=== PATIENT | female | born 1995 | race Caucasian/White ===

== ENCOUNTER 2017-06-24 22:09 | Emergency (ER) | payer OTHER ==
--- NOTE | 2017-06-24 23:34 | ED Physician Documentation ---
PD HPI ABD PAIN - Stated complaint Stated Complaint: ALLERGIC REACTION - Chief complaint Chief Complaint: Abd Pain - History obtained from History obtained from: Patient - History of Present Illness Timing - onset: Enter time (21:00) Timing - details: Abrupt onset Quality: Pain Location: Epigastric Radiation: Lower back, Right flank Improved by: Other (no ameliorating factors) Worsened by: Other (no exacerbating factors) Associated symptoms: Nausea, Vomiting. No: Fever, Diarrhea, Constipation Recently seen: Not recently seen - Additional information Additional information: c/o sudden onset upper abdominal pain radiating around right flank to back, associated with nausea and vomiting. 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 She suspects the symptoms were due to ingestion of a pistachio, as she has had similar symptoms in the past associated with ingestion of nuts. Review of Systems Constitutional: reports: Sweats. denies: Fever, Chills Cardiac: reports: Reviewed and negative Respiratory: reports: Reviewed and negative GI: reports: Abdominal Pain, Nausea, Vomiting. denies: Constipation, Diarrhea : denies: Dysuria, Frequency Musculoskeletal: reports: Back pain PD PAST MEDICAL HISTORY - Past Medical History Past Medical History: No - Past Surgical History Past Surgical History: Yes General: Colonoscopy - Present Medications Home Medications: Ambulatory Orders Medication Instructions Recorded Confirmed Ca/D3/Mag Ox/Zinc/Metal Die Finisher/Eleazar/Bor 06/24/17 [Calcium 231-S0-Pilwmjnx Chw Tb] Fluticasone [Flonase] 06/24/17 Medroxyprogesterone Acetate 06/24/17 [Depo-Subq Provera 104] - Allergies Allergies/Adverse Reactions: Allergies Allergy/AdvReac Type Severity Reaction Status Date / Time cashew nut Allergy Anaphylaxis Verified 06/24/17 22:21 Penicillins Allergy Anaphylaxis Verified 06/24/17 22:21 peanuts Allergy Anaphylaxis Uncoded 06/24/17 22:21 - Social History Does the pt smoke?: No Smoking Status: Never smoker Does the pt drink ETOH?: Yes Does the pt have substance abuse?: No - Immunizations Immunizations are current?: Yes - POLST Patient has POLST: No PD ED PE NORMAL - Vitals Vital signs reviewed: Yes - General General: Alert and oriented X 3, No acute distress, Well developed/nourished - Cardiac Cardiac: RRR, No murmur - Respiratory Respiratory: No respiratory distress, Clear bilaterally - Abdomen Abdomen: Soft, Non distended, Other (mild epigastric and RUQ tenderness without rebound or guarding) - Back Back: No CVA TTP Results - Vitals Vitals: Vital Signs - 24 hr 06/24/17 06/24/17 06/25/17 22:17 23:29 01:35 Temperature 36.4 C L Heart Rate 86 71 70 Respiratory 18 16 16 Rate Blood Pressure 133/88 H 116/79 112/74 O2 Saturation 100 99 99 Oxygen O2 Source Room air - Labs Labs: Laboratory Tests 06/25/17 06/25/17 06/25/17 00:15 00:20 00:20 WBC 15.0 H RBC 5.11 Hgb 15.4 Hct 45.7 MCV 89.4 MCH 30.2 MCHC 33.8 RDW 12.9 Plt Count 204 MPV 8.6 Neut # 10.8 H Lymph # 2.5 [place] # 1.4 H Eos # 0.1 Baso # 0.1 Absolute Nucleated RBC 0.00 Nucleated RBC % 0.0 Sodium 138 Potassium 3.7 Chloride 105 Carbon Dioxide 24 Anion Gap 9.0 BUN 14 Creatinine 0.7 Estimated GFR (MDRD) 104 Glucose 104 H Calcium 9.6 Total Bilirubin 0.8 AST 23 ALT 18 Alkaline Phosphatase 45 Total Protein 8.0 Albumin 5.3 Globulin 2.7 Albumin/Globulin Ratio 2.0 Lipase 17 L Urine Color YELLOW Urine Clarity CLEAR Urine pH 7.0 Ur Specific [place] 1.010 Urine Protein NEGATIVE Urine Glucose (UA) NEGATIVE Urine Ketones TRACE Urine Occult Blood TRACE-INTA Urine Nitrite NEGATIVE Urine Bilirubin NEGATIVE Urine Urobilinogen 0.2 (NORMAL) Ur Leukocyte Esterase NEGATIVE Ur Microscopic Review NOT INDICATED Urine Culture Comments NOT INDICATED PD MEDICAL DECISION MAKING - ED course Complexity details: reviewed results, re-evaluated patient, considered differential, d/w patient ED course: Patient suspects symptoms tonight were due to ingestion of pistachio, although she has had pistachios before without such symptoms. She says she did have one previous similar episode after ingestion of nuts and she was T+R from another ED after being treated for suspected allergic reaction to nuts. However, she says the symptoms tonight did not start until nearly an hour after she ate the pistachios and after she started eating her dinner. Differential diagnosis included renal colic, biliary colic. Bedside US shows normal GB without evidence of calculus or sludge. She has trace hematuria but after blood tests and UA resulted, patient says she feels symptoms have resolved and thus further testing not performed. I d/w patient that CT would typically be diagnostic if symptoms are due to renal colic, but this can be done in outpatient setting or else return to ED if symptoms return. Departure - Departure Disposition: 01 Home, Self Care Clinical Impression: Abdominal pain Qualifiers: Abdominal location: upper abdomen, unspecified Qualified Code(s): R10.10 - Upper abdominal pain, unspecified Condition: Good Instructions: ED Abdominal Pain Unkn Cause, ED Flank Pain Uncertain Cause Follow-Up: JOHNATHON RAY DO [Primary Care Provider] - Discharge Date/Time: 06/25/17 01:38
[2017-06-25 00:30] LABS: BASOPHILS # (AUTO) 0.1 10^3/uL (0.0-0.1); BASOPHILS % (AUTO) 0.3 %; EOSINOPHILS # (AUTO) 0.1 10^3/uL (0.0-0.7); EOSINOPHILS % (AUTO) 0.9 %; HGB - HEMOGLOBIN 15.4 g/dL (12.0-16.0); LYMPHOCYTES # (AUTO) 2.5 10^3/uL (1.5-3.5); LYMPHOCYTES % (AUTO) 16.8 %; MEAN CORPUSCULAR HEMOGLOBIN 30.2 pg (27.0-31.0); MEAN CORPUSCULAR HGB CONC 33.8 g/dL (32.0-36.0); MEAN CORPUSCULAR VOLUME 89.4 fL (81.0-99.0); MEAN PLATELET VOLUME 8.6 fL (7.9-10.8); MONOCYTES # (AUTO) 1.4 10^3/uL (0.0-1.0); MONOCYTES % (AUTO) 9.7 %; NEUTROPHILS # (AUTO) 10.8 10^3/uL (1.5-6.6); NEUTROPHILS % (AUTO) 72.3 %; PLT - PLATELET COUNT 204 10^3/uL (130-450); RED BLOOD COUNT 5.11 10^6/uL (4.20-5.40); RED CELL DISTRIBUTION WIDTH 12.9 % (12.0-15.0)
[2017-06-25 00:39] LABS: BILIRUBIN,URINE NEGATIVE (NEGATIVE); GLUCOSE, URINE (UA) NEGATIVE (NEGATIVE); KETONES,URINE (UA) TRACE mg/dL (NEGATIVE); LEUKOCYTE ESTERASE, URINE NEGATIVE (NEGATIVE); NITRITE,URINE NEGATIVE (NEGATIVE); OCCULT BLOOD,URINE TRACE-INTA (NEGATIVE); PROTEIN,URINE NEGATIVE (NEGATIVE); UROBILINOGEN,URINE 0.2 (NORMAL) E.U./dL (NORMAL)
[2017-06-25 00:40] LABS: ALBUMIN 5.3 g/dL (3.2-5.5); BILIRUBIN,TOTAL 0.8 mg/dL (0.2-1.0); CALCIUM 9.6 mg/dL (8.5-10.3); CREATININE 0.7 mg/dL (0.4-1.0)
[2017-06-25 00:44] LABS: CLARITY,URINE CLEAR (CLEAR)
[2017-06-25 01:36] VITALS: BP 112/74
== END 2017-06-25 01:38 | disposition home or self-care (01) ==
LOC: ED 22:09
DX: R10.11 Right upper quadrant pain (principal); R10.13 Epigastric pain
CPT/HCPCS: 36415; 80053; 81001; 81003; 83690; 85025; 87086; 99283

== ENCOUNTER 2020-08-18 13:57 | Emergency (ER) | payer OTHER ==
[2020-08-18] MEDS ORDERED: BUFFERED LIDOCAINE 10 ML SYRINGE SUBQ STA (14:06)
--- NOTE | 2020-08-18 14:06 | ED Physician Documentation ---
PD HPI LOWER EXT INJURY - Stated complaint Stated Complaint: L FOOT INJURY - History obtained from History obtained from: Patient - Additional information Additional information: She impacted her toe into door while chasing her daughter at home this morning. She took ibuprofen and that is currently sufficient. No possibility of . Review of Systems Constitutional: reports: Reviewed and negative Eyes: reports: Reviewed and negative Ears: reports: Reviewed and negative Nose: reports: Reviewed and negative PD PAST MEDICAL HISTORY - Past Surgical History Past Surgical History: Yes General: Colonoscopy - Present Medications Home Medications: Ambulatory Orders Medication Instructions Recorded Confirmed Ca/D3/Mag Ox/Zinc/Machine Cloth Trimmer/Eleazar/Bor 1 tab PO DAILY 06/24/17 [Calcium 850-N4-Ioeeksxv Chw Tb] Non Formulary 08/18/20 - Allergies Allergies/Adverse Reactions: Allergies Allergy/AdvReac Type Severity Reaction Status Date / Time cashew nut Allergy Anaphylaxis Verified 08/18/20 14:11 Penicillins Allergy Anaphylaxis Verified 08/18/20 14:11 peanuts Allergy Anaphylaxis Uncoded 08/18/20 14:11 - Social History Does the pt smoke?: No Smoking Status: Never smoker Does the pt drink ETOH?: Yes Does the pt have substance abuse?: No - Immunizations Immunizations are current?: Yes - POLST Patient has POLST: No PD ED PE NORMAL - Vitals Vital signs reviewed: Yes - General General: Alert and oriented X 3, No acute distress - Extremities Extremities: Other (Left fourth toe is tender proximally with a rotational and eversional deformity.) - Neuro Neuro: Alert and oriented X 3, Normal speech Results - Vitals Vitals: Vital Signs - 24 hr 08/18/20 14:09 Temperature 36.6 C Heart Rate 83 Respiratory 18 Rate Blood Pressure 138/96 H O2 Saturation 100 Oxygen O2 Source Room air - Rads (name of study) L 4th toe Radiology: EMP read contemporaneously (Displaced oblique fracture of the proximal phalanx of the fourth toe) Procedures - Reduction Body part reduced: Left, Toe Fracture or dislocation: Fracture dislocation Anesthesia: Other (After a digital block with buffered lidocaine and excellent anesthesia the toe was reduced with visible improvement in alignment and then guillermo taped in a fracture shoe was placed.) Departure - Departure Disposition: 01 Home, Self Care Clinical Impression: Toe fracture, left Qualifiers: Encounter type: initial encounter Toe: lesser toe Fracture type: closed Phalanx : proximal Fracture alignment: displaced Qualified Code(s): S92.512A - Displaced fracture of proximal phalanx of left lesser toe(s), initial encounter for closed fracture Condition: Good Record reviewed to determine appropriate education?: Yes Instructions: ED Fx Toe Closed Forms: Activity restrictions
--- NOTE | 2020-08-18 14:34 | XRAY Report ---
PROCEDURE: Toe(s) LT INDICATIONS: L 4th toe inj TECHNIQUE: Single view of the foot along with 2 dedicated views of the fourth toe were performed. COMPARISON: None FINDINGS: Bones: Mildly displaced oblique fracture of the proximal phalanx of the fourth toe. No additional fra ctures or dislocation. Soft tissues: Surrounding soft tissue swelling. IMPRESSION: Mildly displaced oblique fracture of the proximal phalanx of the fourth toe. Reviewed by: Carroll Meek DO on 08/18/2020 1:32 PM T[facility] Approved by: Carroll Meek DO on 08/18/2020 1:32 PM T[facility] Station ID: [id number]
[2020-08-18 14:54] VITALS: BP 130/79
== END 2020-08-18 14:54 | disposition home or self-care (01) ==
LOC: ED 13:57
DX: S92.512A Displaced fracture of proximal phalanx of left lesser toe(s), initial encounter for closed fracture (principal); W22.8XXA Striking against or struck by other objects, initial encounter; Y93.02 Activity, running; Y92.009 Unspecified place in unspecified non-institutional (private) residence as the place of occurrence of the external cause

== ENCOUNTER 2021-03-20 17:18 | Emergency (ER) | payer OTHER ==
[2021-03-20 18:25] LABS: BASOPHILS # (AUTO) 0.1 10^3/uL (0.0-0.1); BASOPHILS % (AUTO) 0.8 %; EOSINOPHILS # (AUTO) 0.1 10^3/uL (0.0-0.7); EOSINOPHILS % (AUTO) 1.2 %; HCT - HEMATOCRIT 42.1 % (37.0-47.0); HGB - HEMOGLOBIN 14.1 g/dL (12.0-16.0); LYMPHOCYTES # (AUTO) 4.1 10^3/uL (1.5-3.5); LYMPHOCYTES % (AUTO) 68.2 %; MEAN CORPUSCULAR HEMOGLOBIN 30.3 pg (27.0-31.0); MEAN CORPUSCULAR HGB CONC 33.5 g/dL (32.0-36.0); MEAN CORPUSCULAR VOLUME 90.3 fL (81.0-99.0); MEAN PLATELET VOLUME 9.8 fL (7.9-10.8); MONOCYTES # (AUTO) 0.5 10^3/uL (0.0-1.0); MONOCYTES % (AUTO) 7.6 %; NEUTROPHILS # (AUTO) 1.3 10^3/uL (1.5-6.6); PLT - PLATELET COUNT 102 10^3/uL (130-450); RED BLOOD COUNT 4.66 10^6/uL (4.20-5.40); RED CELL DISTRIBUTION WIDTH 12.4 % (12.0-15.0); WHITE BLOOD COUNT 6.1 x10^3/uL (4.8-10.8)
[2021-03-20 18:33] LABS: CALCIUM 8.7 mg/dL (8.5-10.3); CREATININE 0.7 mg/dL (0.4-1.0); POTASSIUM 3.8 mmol/L (3.5-5.0)
[2021-03-20 18:40] VITALS: BP 120/80
[2021-03-20 18:50] LABS: BILIRUBIN,URINE NEGATIVE (NEGATIVE); GLUCOSE, URINE (UA) NEGATIVE (NEGATIVE); KETONES,URINE (UA) 15 mg/dL (NEGATIVE); LEUKOCYTE ESTERASE, URINE NEGATIVE (NEGATIVE); NITRITE,URINE NEGATIVE (NEGATIVE); OCCULT BLOOD,URINE LARGE (NEGATIVE); PROTEIN,URINE NEGATIVE (NEGATIVE); UROBILINOGEN,URINE 0.2 (NORMAL) E.U./dL (NORMAL)
[2021-03-20 18:59] LABS: PLATELET ESTIMATE, MANUAL DECREASED (<130,000) (NORMAL); PLATELET MORPHOLOGY NORMAL APPEARANCE (NORMAL); RBC MORPHOLOGY (MULTIPLE) NORMAL APPEARANCE (NORMAL)
--- NOTE | 2021-03-20 18:59 | ED Physician Documentation ---
History of Present Illness - Stated complaint Stated Complaint: FEMALE /BLEEDING/ABD PX - Chief complaint Chief Complaint: Abd Pain - Additonal information Additional information: 25-year-old female presents emergency department for lower abdominal cramping and spotting in first trimester . LMP 02/21/2021. [facility]. She reports that they randy labs and she had a hCG of 2.6. Shortly after going home she began having cramping and light spotting. . Last uneventful vaginal delivery Review of Systems Constitutional: denies: Fever, Chills Ears: reports: Reviewed and negative Nose: reports: Reviewed and negative Throat: reports: Reviewed and negative Cardiac: reports: Reviewed and negative Respiratory: reports: Reviewed and negative GI: reports: Reviewed and negative : reports: LMP (02/21/2021), Vaginal bleeding. denies: Dysuria Skin: reports: Reviewed and negative Musculoskeletal: reports: Reviewed and negative PD PAST MEDICAL HISTORY - Past Medical History Past Medical History: No - Past Surgical History Past Surgical History: Yes General: Colonoscopy - Present Medications Home Medications: Ambulatory Orders Medication Instructions Recorded Confirmed No Known Home Medications 03/20/21 03/20/21 - Allergies Allergies/Adverse Reactions: Allergies Allergy/AdvReac Type Severity Reaction Status Date / Time cashew nut Allergy Anaphylaxis Verified 08/18/20 14:11 Penicillins Allergy Anaphylaxis Verified 08/18/20 14:11 peanuts Allergy Anaphylaxis Uncoded 08/18/20 14:11 - Social History Does the pt smoke?: No Smoking Status: Never smoker Does the pt drink ETOH?: Yes Does the pt have substance abuse?: No - Immunizations Immunizations are current?: Yes - POLST Patient has POLST: No PD ED PE NORMAL - General General: Alert and oriented X 3, No acute distress - HEENT HEENT: PERRL - Neck Neck: Supple, no meningeal sign - Cardiac Cardiac: RRR, No murmur - Respiratory Respiratory: Clear bilaterally - Abdomen Abdomen: Normal bowel sounds, Soft, Non tender, Non distended - Back Back: No CVA TTP, No spinal TTP - Derm Derm: Normal color, Warm and dry, No rash - Extremities Extremities: No deformity, No tenderness to palpate, Normal ROM s pain - Neuro Neuro: Alert and oriented X 3 Eye Opening: Spontaneous Motor: Obeys Commands Verbal: Oriented GCS Score: 15 - Psych Psych: Normal mood Results - Vitals Vitals: Vital Signs - 24 hr 03/20/21 03/20/21 17:27 18:39 Temperature 36.7 C Heart Rate 63 60 Respiratory 16 16 Rate Blood Pressure 127/83 H 120/80 O2 Saturation 100 100 Oxygen O2 Source Room air - Labs Labs: Laboratory Tests 03/20/21 03/20/21 03/20/21 18:14 18:14 18:14 WBC 6.1 RBC 4.66 Hgb 14.1 Hct 42.1 MCV 90.3 MCH 30.3 MCHC 33.5 RDW 12.4 Plt Count 102 L MPV 9.8 Neut # (Auto) 1.3 L Lymph # (Auto) 4.1 H [place] # (Auto) 0.5 Eos # (Auto) 0.1 Baso # (Auto) 0.1 Absolute Nucleated RBC 0.00 Total Counted DIVIDEND DEPOSIT ENTRY CLERK Band Neuts % (Manual) DIVIDEND DEPOSIT ENTRY CLERK Reactive Lymphs % (Man) DIVIDEND DEPOSIT ENTRY CLERK Abnorm Lymph % (Manual) DIVIDEND DEPOSIT ENTRY CLERK Nucleated RBC % 0.0 Neutrophils # (Manual) DIVIDEND DEPOSIT ENTRY CLERK Lymphocytes # (Manual) DIVIDEND DEPOSIT ENTRY CLERK Monocytes # (Manual) DIVIDEND DEPOSIT ENTRY CLERK Eosinophils # (Manual) DIVIDEND DEPOSIT ENTRY CLERK Basophils # (Manual) DIVIDEND DEPOSIT ENTRY CLERK Differential Comment MANUAL=AUTO DIFF Platelet Estimate DECREASED (<130,000) Platelet Morphology NORMAL APPEARANCE RBC Morph Micro Appear NORMAL APPEARANCE Sodium 136 Potassium 3.8 Chloride 103 Carbon Dioxide 25 Anion Gap 8.0 BUN 14 Creatinine 0.7 Estimated GFR (MDRD) 100 Glucose 94 Calcium 8.7 HCG, Quant Urine Color Urine Clarity Urine pH Ur Specific [place] Urine Protein Urine Glucose (UA) Urine Ketones Urine Occult Blood Urine Nitrite Urine Bilirubin Urine Urobilinogen Ur Leukocyte Esterase Urine RBC Urine WBC Ur Squamous Epith Cells Urine Bacteria Ur Microscopic Review Urine Culture Comments Blood Type A POSITIVE 03/20/21 03/20/21 18:14 18:41 WBC RBC Hgb Hct MCV MCH MCHC RDW Plt Count MPV Neut # (Auto) Lymph # (Auto) [place] # (Auto) Eos # (Auto) Baso # (Auto) Absolute Nucleated RBC Total Counted Band Neuts % (Manual) Reactive Lymphs % (Man) Abnorm Lymph % (Manual) Nucleated RBC % Neutrophils # (Manual) Lymphocytes # (Manual) Monocytes # (Manual) Eosinophils # (Manual) Basophils # (Manual) Differential Comment Platelet Estimate Platelet Morphology RBC Morph Micro Appear Sodium Potassium Chloride Carbon Dioxide Anion Gap BUN Creatinine Estimated GFR (MDRD) Glucose Calcium HCG, Quant 3.56 Urine Color LT. YELLOW Urine Clarity HAZY Urine pH 6.0 Ur Specific [place] 1.020 Urine Protein NEGATIVE Urine Glucose (UA) NEGATIVE Urine Ketones 15 H Urine Occult Blood LARGE H Urine Nitrite NEGATIVE Urine Bilirubin NEGATIVE Urine Urobilinogen 0.2 (NORMAL) Ur Leukocyte Esterase NEGATIVE Urine RBC 6-10 H Urine WBC 0-3 Ur Squamous Epith Cells NONE SEEN Urine Bacteria None Seen Ur Microscopic Review INDICATED Urine Culture Comments NOT INDICATED Blood Type - Rads (name of study) pelvic US Radiology: Final report received (Too early to see intrauterine . Simple appearing right ovarian cyst) PD MEDICAL DECISION MAKING - ED course Complexity details: reviewed results, re-evaluated patient, d/w patient ED course: 25-year-old female who is in her first trimester presents emergency department with lower abdominal cramping and light vaginal spotting. Screening labs are unremarkable however her hCG is only 3.6. She reports that it was 2.6 today at [facility]. She has no leukocytosis. No find a bacteria or urinary tract infection. She is Rh+. We did attempt to do a pelvic ultrasound. Unfortunately we are unable to see an IUP. We did find a simple appearing right ovarian cyst. Her hCG is simply too low at this time to confirm an IUP. Patient will be discharged home. I do recommend that she return for repeat hCG in 72 hours. Emergent return precautions were discussed for fevers, sudden severe lower abdominal pain or severe vaginal bleeding. Departure - Departure Disposition: 01 Home, Self Care Clinical Impression: Threatened miscarriage in early Condition: Stable Record reviewed to determine appropriate education?: Yes Comments: Dorinda garcia were seen today in the emergency department for vaginal bleeding the first trimester . Your hCG level today is 3.6. This is well below the discriminatory threshold for us to see Intrauterine . Nonetheless we did attempt but were unable to visualize this on ultrasound. You do need to have your hCG repeated in 72 hours or Wednesday afternoon. Over the next few days monitor your vaginal bleeding. If you begin to have severe vaginal bleeding, sudden severe lower pelvic pain, fevers or any fainting episodes you are to return immediately to the ER for a repeat evaluation.
[2021-03-20 19:08] LABS: BACTERIA,URINE None Seen /HPF (None Seen); CLARITY,URINE HAZY (CLEAR); SQUAMOUS EPITHELIAL CELL,UR NONE SEEN (<= Few); WBC,URINE 0-3 /HPF (0-5)
[2021-03-20 19:43] LABS: DIFFERENTIAL COMMENT MANUAL=AUTO DIFF
--- NOTE | 2021-03-20 20:04 | Ultrasound Report ---
PROCEDURE: Pelvic w/Doppler Complete INDICATIONS: Pelvic pain TECHNIQUE: Real-time scanning was performed of the pelvic organs, with image documentation. COMPARISON: None. FINDINGS: No pathologic free abdominal or pelvic fluid. Uterus: Uterus is anteverted and normal in size at 7.5 x 3.6 x 4.7 cm. The endometrium measures 8.5 mm in combined thickness. Ovaries: The right ovary measures 3.4 x 3.0 x 3.3 cm for a volume of 17.2 cc. It contains a single d ominant follicle measuring 2.6 cm. There is normal vascular flow to the right ovary. The left ovary m easures 2.8 x 2.8 x 2.6 cm for a volume of 10.7 cc. There is normal follicular echotexture and vascul ar flow. IMPRESSION: Normal pelvic ultrasound. Preliminary results given by the gas or water meter installer to the ordering provider. Reviewed by: Radha Omalley MD on 03/20/2021 8:02 PM PST Approved by: Radha Omalley MD on 03/20/2021 8:02 PM PST Station ID: [id number]
== END 2021-03-20 20:03 | disposition home or self-care (01) ==
LOC: ED 17:18
DX: O20.0 Threatened abortion (principal); O34.81 Maternal care for other abnormalities of pelvic organs, first trimester; N83.291 Other ovarian cyst, right side; Z3A.00 Weeks of gestation of pregnancy not specified
CPT/HCPCS: 36415; 80048; 81001; 81003; 84702; 84703; 85025; 86900; 86901; 87086; 93975; 99283; 99284